=== PATIENT | female | born 1930 | race Caucasian/White ===

== ENCOUNTER 2017-01-23 09:07 | Emergency (ER) | payer OTHER, MEDICARE ==
--- NOTE | 2017-01-23 09:11 | EDPHY ---
HPI/HX/ROS/PE/MDM Narrative: CHIEF COMPLAINT: Nosebleed HPI: This is an 86-year-old female, on Xarelto for afib, with a history of recurrent nosebleeds. She developed a nosebleed at some point this morning and was transported to ED by EMS. She denies pain. She feels that living facility is not applying ointment to her nose as directed. REVIEW OF SYSTEMS: Aside from elements discussed in the HPI, a comprehensive 10-point review of systems was reviewed and is negative. PMH: Afib, on anticoagulants. Previous nasal packing for epistaxis. SOCIAL HISTORY: retired. Lives in [facility]. PHYSICAL EXAM: General:Patient is alert, in no acute distress. ENT:Eyes are normal to inspection. Nasal clamp on. Dried blood present in bilateral nares. Neck: Normal inspection. Full range of motion. Respiratory:No respiratory distress. Breath sounds normal bilaterally. Cardiovascular: Irregular rate and rhythm. Strong peripheral pulses. Normal cap refill. Neuro: Oriented x3. Normal motor function. Normal sensory function. MDM: This patient presents with epistaxis. She and her family are reluctant to be treated with nasal packing given the upcoming holiday. I think simple ED cauterization is likely to fail given her comorbidities, anticoagulant use and history of recurrence. [facility] ENT has agreed to see her in the office today and family is comfortable with the plan to defer management to ENT. - Data Points Medications Given: Discontinued Medications Oxymetazoline HCl (Afrin Nasal [place]) 2 sprays EACHNARE EDNOW ONE Stop: 01/23/17 09:41 Last Admin: 01/23/17 09:43 Dose: 2 sprays General Initial Vital Signs: Initial Vital Signs Temperature (C) 35.8 C L 01/23/17 09:16 Heart Rate 102 H 01/23/17 09:16 Respiratory Rate 12 01/23/17 09:16 Blood Pressure 160/119 H 01/23/17 09:16 O2 Sat (%) 97 01/23/17 09:16 O2 Delivery Mode Nasal Cannula O2 (L/minute) 2 Allergies/Adverse Reactions: amoxicillin Allergy (Verified 12/04/15 06:38) celecoxib Allergy (Verified 12/04/15 06:38) cephalexin Allergy (Verified 12/04/15 06:38) clindamycin Allergy (Verified 10/01/16 06:38) methotrexate Allergy (Verified 12/04/15 06:38) niacin Allergy (Verified 12/04/15 06:38) Home Medications: Medication Instructions Recorded Albuterol [Ventolin Hfa Inhaler] 11/11/15 Allopurinol 11/11/15 Bumex (*) 11/11/15 Cyanocobalamin (Vitamin B-12) 11/11/15 Diltiazem 11/11/15 Fluticasone Hfa 110 Mcg [Flovent 11/11/15 110 MCG Hfa MDI (*)] Levothyroxine 11/11/15 Melatonin 11/11/15 Potassium Chloride [Klor-Con] 11/11/15 Ranitidine HCl 11/11/15 Restasis Opht Drops(*) 11/11/15 Vitamin B Complex 11/11/15 Vitamin D3 11/11/15 Xarelto 10mg (*) 11/11/15 Departure - Departure Disposition: Home, Routine, Self-Care Clinical Impression: Acute anterior epistaxis Condition: Good Instructions: Nosebleed (ED) Additional Instructions: Go directly to [facility] ENT for evaluation. Referrals: Patient,NotPresent [Unknown] - As per Instructions Report Scribed for: Edin Melgoza Report Scribed by: Ann Marie Roberson Date of Report: 01/23/17 Time of Report: 09:11 Physician Review and Approval Statement: Portions of this note were transcribed by an ED scribe. I personally performed the history, physical exam, and medical decision making; and confirm the accuracy of the information in the transcribed note.
[2017-01-23 09:18] VITALS: O2SAT 97
[2017-01-23] MEDS ORDERED: OXYMETAZOLINE 30 ML NASAL SPRAY ONE (09:28)
[2017-01-23] MEDS ORDERED: OXYMETAZOLINE 30 ML NASAL SPRAY EACHNARE ONE (09:40)
[2017-01-23 11:46] VITALS: BP 132/102; PULSE 99; RESP 18; TEMP 98.4
== END 2017-01-23 11:47 | disposition home or self-care (01) ==
LOC: EDBD → EDUNIT#
DX: R04.0 Epistaxis (principal)

== ENCOUNTER 2017-08-19 22:59 | Emergency (ER) | payer OTHER, MEDICARE ==
[2017-08-19] MEDS ORDERED: ASPIRIN 81 MG CHEWABLE TAB PO ONE (23:02)
--- NOTE | 2017-08-19 23:03 | EDPHY ---
H & P Stated Complaint: chest discomfort Time Seen by Provider: 08/19/17 23:03 HPI/ROS: HPI The patient presents with left-sided chest discomfort and is brought in by ambulance. [place] [facility] [place] their [place] tonight, she complained of left-sided chest discomfort. Paramedics were called. Patient said pain had mostly improved, though not completely subsided. Blood glucose was normal, EKG demonstrated atrial fibrillation which is a known diagnosis for the patient. She now feels fine and denies any chest discomfort, shortness of breath, nausea, vomiting. Her daughter suspect she could be dehydrated because of the hot weather lately, often forgets to drink water. She has a MOST form with her stating that she is limited interventions. REVIEW OF SYSTEMS Constitutional: No fever, no chills. Eyes: No discharge. ENT: No sore throat. Cardiovascular: Positive for chest pain, no palpitations. Respiratory: No cough, no shortness of breath. Gastrointestinal: No abdominal pain, no vomiting. Genitourinary: No hematuria. Musculoskeletal: No back pain. Skin: No rashes. Neurological: No headache. PMHx: Hypertension, atrial fibrillation on Xarelto, history of breast cancer status post bilateral mastectomy, COPD on 2 L oxygen as needed, Alzheimer's dementia Soc Hx: [place] [facility] [place], here with her family, previously worked as an ER nurse PHYSICAL General Appearance: Alert, no distress Eyes: Pupils equal and round no pallor or injection ENT, Mouth: Mucous membranes moist Respiratory: There are no retractions, lungs are clear to auscultation Cardiovascular: Irregularly irregular Gastrointestinal: Abdomen is soft and non-tender, no masses, bowel sounds normal Neurological: A&O, moves all extremities Skin: Warm and dry, no rashes Musculoskeletal: Neck is supple non tender Extremities: Left lower extremity with trace edema of the kaiser, full range of motion Psychiatric: Patient is oriented X 3, there is no agitation Source: Patient, EMS Exam Limitations: Clinical condition - Medical/Surgical History Hx Asthma: No Hx Chronic Respiratory Disease: Yes Hx Diabetes: No Hx Cardiac Disease: Yes Hx Renal Disease: No Hx Cirrhosis: No Hx Alcoholism: No Hx HIV/AIDS: No Hx Splenectomy or Spleen Trauma: No Other PMH: HTN, Bilateral mastectomies, hypothyroid, afib,asthma COPD, Osteoarthritis, relux, Alzheimers - Social History Smoking Status: Former smoker Constitutional: Initial Vital Signs Temperature (C) 36.8 C 08/19/17 22:59 Heart Rate 95 08/19/17 22:59 Respiratory Rate 20 08/19/17 22:59 Blood Pressure 160/113 H 08/19/17 22:59 O2 Sat (%) 97 08/19/17 22:59 O2 Delivery Mode Nasal Cannula O2 (L/minute) 2 Allergies/Adverse Reactions: amoxicillin Allergy (Verified 08/19/17 23:02) celecoxib Allergy (Verified 08/19/17 23:02) cephalexin Allergy (Verified 08/19/17 23:02) clindamycin Allergy (Verified 08/19/17 23:02) methotrexate Allergy (Verified 08/19/17 23:02) niacin Allergy (Verified 08/19/17 23:02) Home Medications: Medication Instructions Recorded Albuterol [Ventolin Hfa Inhaler] 11/11/15 Allopurinol 11/11/15 Bumex (*) 11/11/15 Cyanocobalamin (Vitamin B-12) 11/11/15 Diltiazem 11/11/15 Fluticasone Hfa 110 Mcg [Flovent 11/11/15 110 MCG Hfa MDI (*)] Levothyroxine 11/11/15 Melatonin 11/11/15 Potassium Chloride [Klor-Con] 11/11/15 Ranitidine HCl 11/11/15 Restasis Opht Drops(*) 11/11/15 Vitamin B Complex 11/11/15 Vitamin D3 11/11/15 Xarelto 10mg (*) 11/11/15 Medical Decision Making - Diagnostics EKG Interpretation: EKG: Complete interpretation has been separately recorded in the [facility] archive. Summary impression: Atrial fibrillation, rate of approximately 100, no ST segment changes compared with old EKG Imaging Results: Imaging Impressions Chest X-Ray 08/19/17 23:02 Impression: 1. Prominent cardiomegaly with pulmonary venous redistribution consistent with congestive heart failure, possible pending pulmonary edema. 2. Findings consistent with airways disease noted. 3. See above report for additional findings. Imaging: I viewed and interpreted images myself Differential Diagnosis: 87-year-old female presents from her memory care unit with history of atrial fibrillation, hypertension, COPD on home O2 brought in by ambulance for left- sided chest discomfort which she complained of tonight when nurses were making their rounds. She is now feeling well, denies any current chest pain. She does suffer from Alzheimer's dementia and cannot provide full history of events. However family corroborates EMS report. On exam, she is currently in atrial fibrillation at a slightly elevated rate, otherwise she has trace left lower extremity edema, however daughter reports this is usual for her. Basic labs were checked and were unremarkable including troponin. EKG revealed persistent atrial fibrillation with no ST segment change. Chest x-ray did demonstrate cardiomegaly which is similar to prior chest x-ray from 2016, however there seems to be more prominent vasculature. Because of this BNP was added on. This was elevated. There is no prior BNP for comparison. The patient could be experiencing CHF exacerbation as the cause of her symptoms. However, currently, she is asymptomatic and feels well. She denies any shortness of breath, worsening lower extremity edema which is just trace of her left lower extremity. She has been on Bumex for several years. She previously received care in [place] before she moved to [place] a few years ago. I have discussed the test results with her and her family at the bedside. I have offered admission to the hospital for further testing. They decline at this time. I will not increase her Bumex dosing currently, however I would like for her to follow up with her primary care doctor Dr. Richard. She says she is able to do this. I have discussed strict return precautions. Differential diagnoses considered include CHF exacerbation, ACS, pulmonary embolism, pulmonary edema. - Data Points Laboratory Results: Laboratory Results 08/19/17 23:05 08/19/17 23:05 08/20/17 08/19/17 08/19/17 00:15 23:06 23:05 WBC RBC Hgb Hct MCV MCH MCHC RDW Plt Count MPV Neut % (Auto) Lymph % (Auto) [place] % (Auto) Eos % (Auto) Baso % (Auto) Nucleat RBC Rel Count Absolute Neuts (auto) Absolute Lymphs (auto) Absolute Monos (auto) Absolute Eos (auto) Absolute Basos (auto) Absolute Nucleated RBC Immature Gran % Immature Gran # D-Dimer 0.34 ug/mLFEU ug/mLFEU (0.00-0.50) Sodium Potassium Chloride Carbon Dioxide Anion Gap BUN Creatinine Estimated GFR Glucose Calcium POC Troponin I 0.01 ng/mL ng/mL (0.00-0.08) NT-Pro-B Natriuret Pep Urine Color YELLOW Urine Appearance CLEAR Urine pH 7.0 (5.0-7.5) Ur Specific [place] 1.014 (1.002-1.030) Urine Protein 2+ H (NEGATIVE) Urine Ketones NEGATIVE (NEGATIVE) Urine Blood NEGATIVE (NEGATIVE) Urine Nitrate NEGATIVE (NEGATIVE) Urine Bilirubin NEGATIVE (NEGATIVE) Urine Urobilinogen NEGATIVE EU EU (0.2-1.0) Ur Leukocyte Esterase NEGATIVE (NEGATIVE) Urine RBC 1-3 /hpf /hpf (0-3) Urine WBC 3-5 /hpf H /hpf (0-3) Ur Epithelial Cells TRACE /lpf /lpf (NONE-1+) Urine Glucose NEGATIVE (NEGATIVE) 08/19/17 08/19/17 23:05 23:05 WBC 5.91 10^3/uL 10^3/uL (3.80-9.50) RBC 5.13 10^6/uL 10^6/uL (4.18-5.33) Hgb 15.3 g/dL g/dL (12.6-16.3) Hct 47.2 % H % (38.0-47.0) MCV 92.0 fL fL (81.5-99.8) MCH 29.8 pg pg (27.9-34.1) MCHC 32.4 g/dL g/dL (32.4-36.7) RDW 14.3 % % (11.5-15.2) Plt Count 204 10^3/uL 10^3/uL (150-400) MPV 9.6 fL fL (8.7-11.7) Neut % (Auto) 50.9 % % (39.3-74.2) Lymph % (Auto) 37.1 % % (15.0-45.0) [place] % (Auto) 9.3 % % (4.5-13.0) Eos % (Auto) 1.7 % % (0.6-7.6) Baso % (Auto) 0.8 % % (0.3-1.7) Nucleat RBC Rel Count 0.0 % % (0.0-0.2) Absolute Neuts (auto) 3.01 10^3/uL 10^3/uL (1.70-6.50) Absolute Lymphs (auto) 2.19 10^3/uL 10^3/uL (1.00-3.00) Absolute Monos (auto) 0.55 10^3/uL 10^3/uL (0.30-0.80) Absolute Eos (auto) 0.10 10^3/uL 10^3/uL (0.03-0.40) Absolute Basos (auto) 0.05 10^3/uL 10^3/uL (0.02-0.10) Absolute Nucleated RBC 0.00 10^3/uL 10^3/uL (0-0.01) Immature Gran % 0.2 % % (0.0-1.1) Immature Gran # 0.01 10^3/uL 10^3/uL (0.00-0.10) D-Dimer Sodium 136 mEq/L mEq/L (135-145) Potassium 4.2 mEq/L mEq/L (3.3-5.0) Chloride 97 mEq/L mEq/L (97-110) Carbon Dioxide 34 mEq/l H mEq/l (22-31) Anion Gap 5 mEq/L L mEq/L (8-16) BUN 26 mg/dL H mg/dL (7-23) Creatinine 0.8 mg/dL mg/dL (0.6-1.0) Estimated GFR > 60 Glucose 86 mg/dL mg/dL (70-100) Calcium 9.1 mg/dL mg/dL (8.5-10.4) POC Troponin I NT-Pro-B Natriuret Pep 1480 pg/mL H pg/mL (0-450) Urine Color Urine Appearance Urine pH Ur Specific [place] Urine Protein Urine Ketones Urine Blood Urine Nitrate Urine Bilirubin Urine Urobilinogen Ur Leukocyte Esterase Urine RBC Urine WBC Ur Epithelial Cells Urine Glucose Medications Given: Discontinued Medications Aspirin (Aspirin) 324 mg PO EDNOW ONE Stop: 08/19/17 23:03 Last Admin: 08/19/17 23:14 Dose: 324 mg Sodium Chloride (Ns) 500 mls @ 1,000 mls/hr IV EDNOW ONE PRN Reason: Protocol Stop: 08/19/17 23:39 Last Admin: 08/19/17 23:13 Dose: 500 mls Point of Care Test Results: Chemistry 08/19/17 23:06 POC Troponin I 0.01 ng/mL ng/mL (0.00-0.08) Departure - Departure Disposition: Home, Routine, Self-Care Clinical Impression: Chest discomfort, CHF (congestive heart failure) Atrial fibrillation Qualifiers: Atrial fibrillation type: chronic Qualified Code(s): I48.2 - Chronic atrial fibrillation Condition: Good Instructions: Chest Pain (ED) Additional Instructions: The cause of your chest pain is not entirely clear, because of this you should return to the emergency department if you are worse in any way, develops any shortness of breath or swelling in her legs. I would like for you to follow up with Dr. Richard in the next few days for recheck. Referrals: LEE DELEON [Other] - As per Instructions Galo Richard MD [Medical Doctor] - As per Instructions
--- NOTE | 2017-08-19 23:09 | CPEKG ---
Heart Rate: 107 RR Interval: 561 QRSD Interval: 92 QT Interval: 352 QTC Interval: 470 QRS Sandy: 46 T Wave Sandy: 33 EKG Severity - ABNORMAL ECG - EKG Impression: ATRIAL FIBRILLATION, V-RATE 72-139 EKG Impression: PROBABLE LVH WITH SECONDARY REPOL ABNRM Electronically Signed By: Ivy Hung 20-Aug-2017 05:47:29
[2017-08-19] MEDS ORDERED: NS 500 ML IV ONE (23:10)
[2017-08-19 23:12] LABS: PLATELET COUNT 204 10^3/uL (150-400)
[2017-08-20 01:30] VITALS: BP 158/98
== END 2017-08-20 01:30 | disposition home or self-care (01) ==
LOC: EDUNIT#
DX: I48.2 Chronic atrial fibrillation (principal); J44.9 Chronic obstructive pulmonary disease, unspecified; I11.0 Hypertensive heart disease with heart failure; I50.9 Heart failure, unspecified; G30.9 Alzheimer's disease, unspecified; E86.9 Volume depletion, unspecified; Z85.3 Personal history of malignant neoplasm of breast; Z87.891 Personal history of nicotine dependence
CPT/HCPCS: 84484-PO

== ENCOUNTER → 2018-03-12 | Outpatient (CLI) | payer OTHER, MEDICARE | LOC: FIMAGING 15:33 | PROVIDERS: ATTEND Family Medicine Geriatric Medicine | DX: R91.8 Other nonspecific abnormal finding of lung field (principal) ==

== ENCOUNTER 2018-03-15 03:06 | Inpatient (IN) | payer OTHER, MEDICARE ==
[2018-03-15] MEDS ORDERED: TDAP ADULT 0.5 ML INJ (BOOSTRIX) IM ONE (03:17)
[2018-03-15] MEDS ORDERED: ONDANSETRON 4 MG/2 ML VIAL IVP ONE (03:25)
[2018-03-15] MEDS ORDERED: ONDANSETRON 4 MG/2 ML VIAL ONE ×2 (03:26→07:03)
--- NOTE | 2018-03-15 03:39 | EDPHY ---
H & P Stated Complaint: FALL, HEAD LAC, PAIN ADAN KNEES, MULT BRUISES Time Seen by Provider: 03/15/18 03:15 HPI/ROS: HPI: The patient presents with a fall which occurred earlier in the morning today. She is brought in by ambulance for [facility] memory care where she resides. She was found on her 2:00 a.m. Nursing rounds on the ground, unable to stand up with scalp laceration, right knee pain. 911 was called. Patient is not able to provide history surrounding the details of her fall. She denies any complaints currently. She received fentanyl 100 mcg EN route. She has a MOST form stating that she is limited interventions, DNR. REVIEW OF SYSTEMS 10 systems were reviewed and negative with the exception of the elements mentioned in the history of present illness. PMHx: Hypertension, atrial fibrillation on Xarelto, CAD, history of breast cancer status post bilateral mastectomy, COPD on 2 L nasal cannula usually, history of Alzheimer's dementia TRAUMA PHYSICAL General Appearance: Alert, no distress Head: Large left-sided frontal hematoma with overlying 3 cm scalp laceration Eyes: Pupils equal, round, reactive ENT, Mouth: No hemotypanium, no oral trauma Neck: Non- tender, trachea midline Respiratory: No chest wall tenderness, no subcutaneous air, lungs clear bilaterally Cardiovascular: Regular rate and rhythm Abdomen: Abdomen is soft and non-tender, pelvis stable Skin: Forehead laceration as above Back: No midline T/L/S pain Extremities: Right knee with effusion present, diffuse ecchymoses, limited range of motion secondary to pain; left knee is tender to palpation with limited range of motion as well Neurological: Alert, oriented to self, GCS=15,normal motor function with 5/5 strength in all 4 extremities, normal sensory exam Source: Patient, EMS, [facility] records, Old records Exam Limitations: Clinical condition - Personal History Current Tetanus Diphtheria and Acellular Pertussis (TDAP): Unsure - Medical/Surgical History Hx Asthma: No Hx Chronic Respiratory Disease: Yes Hx Diabetes: No Hx Cardiac Disease: Yes Hx Renal Disease: No Hx Cirrhosis: No Hx Alcoholism: No Hx HIV/AIDS: No Hx Splenectomy or Spleen Trauma: No Other PMH: HTN, Bilateral mastectomies, hypothyroid, afib,asthma COPD, Osteoarthritis, relux, Alzheimers, gout - Social History Smoking Status: Former smoker Constitutional: Initial Vital Signs Temperature (C) 36.5 C 03/15/18 03:06 Heart Rate 87 03/15/18 03:06 Respiratory Rate 16 03/15/18 03:06 Blood Pressure 180/110 H 03/15/18 03:06 O2 Sat (%) 96 03/15/18 03:06 O2 Delivery Mode Nasal Cannula O2 (L/minute) 4 Allergies/Adverse Reactions: amoxicillin Allergy (Verified 08/19/17 23:02) celecoxib Allergy (Verified 08/19/17 23:02) cephalexin Allergy (Verified 08/19/17 23:02) clindamycin Allergy (Verified 08/19/17 23:02) methotrexate Allergy (Verified 08/19/17 23:02) niacin Allergy (Verified 08/19/17 23:02) Home Medications: Medication Instructions Recorded Albuterol [Ventolin Hfa Inhaler] 2 puffs IH BID 03/15/18 Allopurinol [Allopurinol 300 MG 300 mg PO DAILY 03/15/18 (RX)] Bumetanide [Bumex (*)] 2 mg PO DAILY 03/15/18 Calcium Carbonate [Oyster Shell 500 mg PO DAILY 03/15/18 Calcium 500 mg (*)] Cholecalciferol Vit D3 [Vitamin D3 2,000 units PO DAILY 03/15/18 (*)] Cyanocobalamin [Vitamin B12 (*)] 1,000 mcg PO DAILY 03/15/18 Diltiazem HCl [Diltiazem 24Hr Cd] 180 mg PO DAILY 03/15/18 Potassium Cl [Klor-Con 20 meq (*)] 20 meq PO DAILY 03/15/18 Propylene Glycol/Peg 400 [Systane 1 drop EACHEYE BID 03/15/18 0.3-0.4% Eye Drops] Rivaroxaban [Xarelto] 20 mg PO DAILY 03/15/18 cycloSPORINE 0.05% [Restasis Opht 1 drop EACHEYE BID 03/15/18 Drops(*)] Medical Decision Making - Diagnostics Imaging Results: Chest x-ray single view demonstrates cardiomegaly, likely pulmonary edema present verses infiltrate of the right middle lobe, prominent right hilum similar to prior chest x-rays Imaging: Discussed imaging studies w/ scallop raker Radiologist, I viewed and interpreted images myself Procedures: LACERATION REPAIR Procedure: Laceration repair. Verbal consent was obtained from the patient. The C-shaped 5 cm laceration on the left forehead was anesthetized using [lidocaine]. The wound was [scrubbed] , draped and explored to its base with a gloved finger. [There were no deep structures involved.] [No tendon injury was identified.] [The wound required extensive debridement ]. The wound was repaired with [ ]. The wound repair was [simple/complex]. The procedure was performed by [myself]. Differential Diagnosis: 87-year-old female with multiple medical problems including atrial fibrillation on Xarelto, hypertension, COPD requiring oxygen, Alzheimer's dementia presents brought in by ambulance from her memory care unit after a unwitnessed fall earlier in the morning. She has signs of head injury with frontal hematoma and scalp laceration. She has diffuse ecchymoses of her right knee and limited range of motion secondary to pain. Her right wrist is also edematous. In the emergency department, I met the paramedics at the bedside to obtain their report. The patient had x-rays performed of her right wrist and right knee. No fracture was identified. Her knee was kept elevated. She underwent CT scan of head and neck which showed no fracture or acute bleeding. Her forehead laceration was repaired by me. She had ongoing swelling of her right knee with increasing ecchymoses and development of blisters on her anterior knee. The compartments in her lower leg remained soft. I consulted with the on-call trauma surgeon Dr. Hewitt who came to the emergency department to evaluate the patient. We have ordered PCC for reversal of her Xarelto given the ecchymoses of her knee per Dr. Hewitt request. We have also added on a CPK level given down time is unknown. We will scan her chest abdomen and pelvis to evaluate for any further injuries. I have also consulted with the on-call orthopedist Dr. Lane who will come in to see the patient. I have spoken with the patient's daughter Karely (home [phone]) about the patient's injuries and current treatment. She will come into the emergency department. The patient went directly to the operating room with the orthopedist for her knee injury. She will be admitted to the hospitalist and I have consulted with Dr. Meza for her admission. Critical Care Time: CRITICAL CARE Critical care time spent by me, Dr. Hung, exclusively with this patient was 60 minutes, exclusive of PA time and exclusive of procedures. The organ system at risk was circulatory and I gave PCC, consulted with Trauma, orthopedics, internal medicine, transfer the patient directly to the operating room to prevent worsening of the patients condition. - Data Points Laboratory Results: Laboratory Results 03/15/18 03:35 03/15/18 03:35 Medications Given: Acetaminophen (Tylenol) 650 mg PO Q4HRS PRN PRN Reason: Pain, Mild/Fever, Can Take PO Stop: 09/11/18 05:37 Last Admin: 03/15/18 20:14 Dose: 650 mg Diltiazem HCl (Cardizem Immediate Release) 60 mg PO Q6HRS MY Stop: 09/11/18 15:44 Last Admin: 03/15/18 15:51 Dose: 60 mg Discontinued Medications Diphtheria/Tetanus/Acell Pertussis (Boostrix) 0.5 ml IM .ONCE ONE Stop: 03/15/18 03:18 Last Admin: 03/15/18 03:48 Dose: 0.5 ml Furosemide (Lasix Injection) 40 mg IVP ONCE ONE Stop: 03/15/18 19:11 Last Admin: 03/15/18 20:09 Dose: 40 mg Prothrombin Complex Concent (Human) (Kcentra) 4,300 unit in 172 mls @ 0 mls/hr IV ONCE ONE; Per Protocol PRN Reason: Protocol Stop: 03/15/18 05:34 Last Admin: 03/15/18 06:36 Dose: 172 mls Vancomycin HCl 1 gm/ Sodium (Chloride) 250 mls @ 250 mls/hr IV ONCE ONE Stop: 03/15/18 08:29 Last Admin: 03/15/18 07:59 Dose: 250 mls Ondansetron HCl (Zofran) 4 mg IVP EDNOW ONE Stop: 03/15/18 03:26 Last Admin: 03/15/18 03:48 Dose: 4 mg Vancomycin HCl (Vancomycin Hcl) Confirm Administered Dose 500 mg IV .STK-MED ONE Stop: 03/15/18 07:48 Last Admin: 03/15/18 08:39 Dose: 500 mg Departure - Departure Disposition: To OP Cath/Surgery
[2018-03-15 03:54] LABS: PLATELET COUNT 207 10^3/uL (150-400)
[2018-03-15 04:02] LABS: INR 2.01 (0.83-1.16); PROTIME(PATIENT) 22.8 SEC (12.0-15.0)
[2018-03-15] MEDS ORDERED: [UNRECOGNIZED DRUG - OTHER] IV ONE (05:05)
--- NOTE | 2018-03-15 05:30 | CPEKG ---
Test Reason : OPEN Blood Pressure : / mmHG Vent. Rate : 089 BPM Atrial Rate : 153 BPM P-R Int : 149 ms QRS Dur : 095 ms QT Int : 400 ms P-R-T Axes : 000 049 -18 degrees QTc Int : 487 ms Atrial fibrillation Probable left ventricular hypertrophy Borderline T abnormalities, inferior leads Borderline prolonged QT interval Confirmed by Ivy Hung ([id number]) on 03/15/2018 5:30:27 AM Referred By: Confirmed By:Ivy Hung
[2018-03-15] MEDS ORDERED: HUMAN PROTHROMBIN COMPLX IV ONE (05:33)
[2018-03-15] MEDS ORDERED: IOPAMIDOL (ISOVUE 370) 100 ML BTL IV ONE (05:33)
[2018-03-15 05:37] LABS: CREATINE KINASE 58 IU/L (0-156)
[2018-03-15] MEDS ORDERED: ONDANSETRON 4 MG/2 ML VIAL IVP PRN ×2 (05:38→08:40)
[2018-03-15] MEDS ORDERED: ONDANSETRON DISINTEGRATING 4 MG TAB PO PRN (05:38)
--- NOTE | 2018-03-15 06:11 | PDGENHP ---
History and Physical - Chief Complaint Found down - History of Present Illness 87 yo F w/ hx of dementia, AF, CHF, and hypothyroid presents after being found down at her living facility. The patient lives at [facility] and was found down this morning with several injures. She has a L frontal laceration and a large R knee effusion. She is on Xarelto for anticoagulation in the setting of atrial fibrillation. The patient herself has very poor memory and is unable to tell me what happened. She does not remember how she fell and does not know why she is here. She Suze&Ox1 on my evaluation with unclear baseline. Her facility did report that her Bumex was stopped earlier this week for concerns of dehydration and restarted recently. Evaluation in the ED is mostly unremarkable aside from large R knee effusion, which is likely a hematoma. The patient herself is currently denying symptoms aside from R knee pain. Case discussed with ED physician Dr. Hung and trauma surgeon Dr. Hewitt; records reviewed and summarized above. History Information - Allergies/Home Medication List Allergies/Adverse Reactions: amoxicillin Allergy (Verified 08/19/17 23:02) celecoxib Allergy (Verified 08/19/17 23:02) cephalexin Allergy (Verified 08/19/17 23:02) clindamycin Allergy (Verified 08/19/17 23:02) methotrexate Allergy (Verified 08/19/17 23:02) niacin Allergy (Verified 08/19/17 23:02) Home Medications: Allopurinol 300 mg DAILY 11/11/15 [Last Taken Unknown] Bumex (*) 2 mg BID 11/11/15 [Last Taken Unknown] Diltiazem 180 mg DAILY 11/11/15 [Last Taken Unknown] Levothyroxine 50 mcg DAILY 11/11/15 [Last Taken Unknown] Melatonin 3 mg DAILY 11/11/15 [Last Taken Unknown] Potassium Chloride [Klor-Con] DAILY 11/11/15 [Last Taken Unknown] Ranitidine HCl 75 mg BID 11/11/15 [Last Taken Unknown] Restasis Opht Drops(*) 1 drop BID 11/11/15 [Last Taken Unknown] Vitamin B Complex DAILY 11/11/15 [Last Taken Unknown] Vitamin D3 2,000 units DAILY 11/11/15 [Last Taken Unknown] Fluticasone Hfa 220 Mcg 1 puffs BID 03/15/18 [Last Taken Unknown] Ventolin Hfa Inhaler 90 mcg BID 03/15/18 [Last Taken Unknown] Xarelto 20 mg DAILY 03/15/18 [Last Taken Unknown] I have personally reviewed and updated: family history, medical history - Past Medical History atrial fibrillation, asthma, CHF Additional medical history: Hypothyroid - Surgical History Additional surgical history: R TKA - Family History Additional family history: Patient unable to recall - Social History Smoking Status: Former smoker Review of Systems Review of Systems: ROS: 10pt was reviewed & negative except for what was stated in HPI & below Physical Exam Physical Exam: Temp Pulse Resp BP Pulse Ox 36.5 C 87 20 146/84 H 100 03/15/18 03:06 03/15/18 05:04 03/15/18 05:04 03/15/18 05:04 03/15/18 05:04 Constitutional: appears nourished, uncomfortable Eyes: PERRL, other (L frontal laceration) Ears, Nose, Mouth, Throat: moist mucous membranes, no oral mucosal ulcers Cardiovascular: no murmur, rub, or gallop, irregularly irregular Respiratory: no respiratory distress, clear to auscultation Gastrointestinal: normoactive bowel sounds, soft, non-tender abdomen Skin: warm, other (Large R knee effusion with overlying ecchymoses) Musculoskeletal: joint effusion (Large R knee effusion with overlying ecchymoses ), pain with ROM Neurologic: other (A&Ox1), No facial droop Psychiatric: interacting appropriately, poor insight, poor memory Lab Data & Imaging Review 03/15/18 03:35 03/15/18 03:35 WBC 6.82 10^3/uL (3.80-9.50) 03/15/18 03:35 RBC 4.45 10^6/uL (4.18-5.33) 03/15/18 03:35 Hgb 13.7 g/dL (12.6-16.3) 03/15/18 03:35 Hct 42.6 % (38.0-47.0) 03/15/18 03:35 MCV 95.7 fL (81.5-99.8) 03/15/18 03:35 MCH 30.8 pg (27.9-34.1) 03/15/18 03:35 MCHC 32.2 g/dL (32.4-36.7) L 03/15/18 03:35 RDW 14.4 % (11.5-15.2) 03/15/18 03:35 Plt Count 207 10^3/uL (150-400) 03/15/18 03:35 MPV 9.3 fL (8.7-11.7) 03/15/18 03:35 Neut % (Auto) 65.1 % (39.3-74.2) 03/15/18 03:35 Lymph % (Auto) 24.3 % (15.0-45.0) 03/15/18 03:35 [place] % (Auto) 8.1 % (4.5-13.0) 03/15/18 03:35 Eos % (Auto) 1.8 % (0.6-7.6) 03/15/18 03:35 Baso % (Auto) 0.4 % (0.3-1.7) 03/15/18 03:35 Nucleat RBC Rel Count 0.0 % (0.0-0.2) 03/15/18 03:35 Absolute Neuts (auto) 4.44 10^3/uL (1.70-6.50) 03/15/18 03:35 Absolute Lymphs (auto) 1.66 10^3/uL (1.00-3.00) 03/15/18 03:35 Absolute Monos (auto) 0.55 10^3/uL (0.30-0.80) 03/15/18 03:35 Absolute Eos (auto) 0.12 10^3/uL (0.03-0.40) 03/15/18 03:35 Absolute Basos (auto) 0.03 10^3/uL (0.02-0.10) 03/15/18 03:35 Absolute Nucleated RBC 0.00 10^3/uL (0-0.01) 03/15/18 03:35 Immature Gran % 0.3 % (0.0-1.1) 03/15/18 03:35 Immature Gran # 0.02 10^3/uL (0.00-0.10) 03/15/18 03:35 PT 22.8 SEC (12.0-15.0) H 03/15/18 03:35 INR 2.01 (0.83-1.16) H 03/15/18 03:35 APTT 36.3 SEC (23.0-38.0) 03/15/18 03:35 Sodium 137 mEq/L (135-145) 03/15/18 03:35 Potassium 4.4 mEq/L (3.5-5.2) 03/15/18 03:35 Chloride 103 mEq/L (97-110) 03/15/18 03:35 Carbon Dioxide 30 mEq/l (22-31) 03/15/18 03:35 Anion Gap 4 mEq/L (6-14) L 03/15/18 03:35 BUN 19 mg/dL (7-23) 03/15/18 03:35 Creatinine 0.7 mg/dL (0.6-1.0) 03/15/18 03:35 Estimated GFR > 60 03/15/18 03:35 Glucose 117 mg/dL (70-100) H 03/15/18 03:35 Calcium 8.2 mg/dL (8.5-10.4) L 03/15/18 03:35 Creatine Kinase 58 IU/L (0-156) 03/15/18 03:35 NT-Pro-B Natriuret Pep 1060 pg/mL (0-450) H 03/15/18 03:35 Urine Color PALE YELLOW 03/15/18 04:20 Urine Appearance CLEAR 03/15/18 04:20 Urine pH 6.0 (5.0-7.5) 03/15/18 04:20 Ur Specific Doon 1.011 (1.002-1.030) 03/15/18 04:20 Urine Protein 1+ (NEGATIVE) H 03/15/18 04:20 Urine Ketones NEGATIVE (NEGATIVE) 03/15/18 04:20 Urine Blood 1+ (NEGATIVE) H 03/15/18 04:20 Urine Nitrate NEGATIVE (NEGATIVE) 03/15/18 04:20 Urine Bilirubin NEGATIVE (NEGATIVE) 03/15/18 04:20 Urine Urobilinogen NEGATIVE EU (0.2-1.0) 03/15/18 04:20 Ur Leukocyte Esterase NEGATIVE (NEGATIVE) 03/15/18 04:20 Urine RBC 1-3 /hpf (0-3) 03/15/18 04:20 Urine WBC 1-3 /hpf (0-3) 03/15/18 04:20 Ur Epithelial Cells TRACE /lpf (NONE-1+) 03/15/18 04:20 Urine Mucus TRACE /lpf (NONE-1+) 03/15/18 04:20 Urine Glucose NEGATIVE (NEGATIVE) 03/15/18 04:20 Assessment & Plan Assessment: 87 yo F w/ hx of dementia, AF, CHF, and hypothyroid presents after being found down found to have large R knee effusion and L frontal lacertaion. Plan: 1. R knee effusion - Suspect hematoma; prosthetic knee appears to be in good alignment (XR personally reviewed). She is on anticoagulation with Xarelto for atrial fibrillation. She has good pulses and sensation distally. - Maintain NPO - Trauma and orthopedic surgery to evaluate 2. Atrial fibrillation - On Xarelto for anticoagulation and diltiazem for rate control. HR currently <100, admission ECG (personally reviewed) demonstrates atrial fibrillation. - Hold Xarelto noting above - Continue other home medications pending reconciliation 3. CHF - Unclear if systolic or diastolic; she is on Bumex as outpatient. Her BNP is elevated but decreased from last check in August of 2017. Her CXR demonstrates vascular congestion but in the setting of very poor inspiratory effort. LLE shows only trace edema while the R is edematous likely due to her large knee effusion. - NPO for now noting above - Daily weights, monitor I/Os 4. Chronic hypoxic respiratory failure - The patient wears 3 L/min O2 at baseline. This is likely due to CHF, asthma, and RHINA/OHS. She is currently near her baseline. - O2 PRN to maintain O2 sats>89% 5. Asthma - No evidence of acute exacerbation - Continue home medications pending reconciliation 6. Hypothyroid - Continue LTX Diet - NPO Code - DNR per MOST form Ppx - SCDs Dispo - Admit under observation status
[2018-03-15] MEDS ORDERED: CEFAZOLIN 2 GM/DEXTROSE/100 ML BAG IV ONE (06:59)
[2018-03-15] MEDS ORDERED: fentaNYL 250 MCG/5 ML INJ ONE (07:03)
[2018-03-15] MEDS ORDERED: DEXAMETHASONE 4 MG/ML VIAL ONE (07:03)
[2018-03-15] MEDS ORDERED: LIDOCAINE 2% 100 MG/5 ML SYR ONE (07:03)
[2018-03-15] MEDS ORDERED: PROPOFOL 200 MG/20 ML VIAL ONE (07:03)
[2018-03-15] MEDS ORDERED: ROCURONIUM 50 MG/5 ML VIAL ONE (07:03)
[2018-03-15] MEDS ORDERED: VANCOMYCIN 1 GM in NS 250 ML IV ONE (07:30)
--- NOTE | 2018-03-15 07:40 | GCON ---
TRAUMA CONSULTATION REASON FOR EVALUATION: Fall from standing at Memory Care Unit with tense ecchymotic change right knee. Laceration left forehead with contusion right forehead, contusion left knee, contusion right hand. HISTORY: The patient is an 87-year-old female who was a DNR/DNA, no pressors patient, who was at a Memory Care Unit. She was found down on the floor at 2 o' clock in the morning; the last rounds had been 2 hours prior. She was in the middle of the floor and did not obviously hit anything. She was brought to the ER evaluation and was seen by Dr. Ivy Hung. She is complaining of right knee and leg pain as well as right wrist pain. CAT scans of her head and neck were negative. Chest x-ray was consistent with mild fluid overload. Her right knee x-rays showed no evidence of injury to the hardware. The patient has absolutely zero memory for the event. ALLERGIES: She has allergies to clindamycin, cephalexin, amoxicillin, Celecoxib , methotrexate, and niacin. She requires oxygen at 3 L/minute. MEDICATIONS: Include vitamin B12 1000 mg daily, allopurinol 300 mg daily, Bumex 2 mg daily (note this has been stopped for 3 days last week). Potassium 20 mEq daily. She uses diltiazem 180 mg daily, Xarelto 20 mg daily, Zantac 75 mg b.i.d., Ventolin inhaler 1 puff b.i.d., Flovent Diskus 250 b.i.d., levothyroxine 150 mcg daily, melatonin 3 mg q.h.s., nystatin cream twice a day, vitamin B 2000 mg daily, docusate 100 mg b.i.d., Gary 500 mg daily, Restasis 1 drop b.i.d., and Cystine 1 drop daily. SURGERIES: Appear to have included bilateral mastectomy for breast cancer, bilateral knee replacement and it looks like she has had extensive back surgery from L2 through L5. Note, she cannot relate any of these surgeries to us. Documentation from the [facility] is silent on this topic. PAST MEDICAL HISTORY: She is known to have Alzheimer dementia. She has asthma and COPD. She has atrial fibrillation. She has a rash under her pannus and near her labia. She has reflux and gout. She was seen in the ER. Her face laceration was repaired. Dr. Lane of Orthopedics has been contacted to evaluate her knee to see if decompression is necessary. PHYSICAL EXAMINATION: GENERAL: She is pleasant, but quite confused. NEUROLOGIC: She is oriented to person only. GCS is 15. She is able to move fingers and toes bilaterally and elevate her arms. I do not detect any focal lateralizing findings. HEAD: Skull has a repaired laceration near the hairline, the upper left forehead and contusion on her right forehead. Skull is palpably normal. There is no Palomo sign. There are no raccoon eyes. EYES: Pupils were 2 mm and minimally reactive. NECK: Nontender. BACK: Nontender to palpation. CHEST: Stable to AP and lateral compression. RIGHT UPPER EXTREMITY: Ecchymosis over the 3rd metacarpal. CARDIAC: Shows S1, S2 to be normal. I do not appreciate any murmurs or rubs at this point. She has an irregularly irregular heartbeat. ABDOMEN: Generous. There is a large rash underneath her pannus. Her pelvis is stable to AP and lateral compression. She has normoactive bowel sounds. LOWER EXTREMITIES: Her left lower extremity has ecchymosis on the medial aspect of the knee. Her right knee has a tensely distended ecchymosis with blistering. She has good distal pulses. Her right leg is quite uncomfortable with attempts at flexion at the knee. LABORATORIES: Reveal a CBC of 6.8, hematocrit of 42, platelet count is 205. INR is 2.01. BUN is 0.7, creatinine is 19. Her urine shows 1-3 red cells per high-power field, 1+ blood, but her CPK is negative. Her BNP is 1050. The CT of her head and neck report is negative. The x-ray of her right wrist and knees report is negative. The report is not yet back on the CT of the chest, abdomen and pelvis. To my examination, there are signs of an extensive back surgery from L2 to L5 with multiple screws placed. A formal interpretation is pending. I do not see evidence of great vessel injury or acute fractures. There are extensive degenerative joint changes in the spine. PLAN: The patient will be admitted to Medicine. I have asked Dr. Lane to come see the patient to see her regarding possible knee decompression to prevent further skin breakdown. Her anticoagulation will be reversed with PCC. /[id number]/MODL MTDD
--- NOTE | 2018-03-15 07:41 | PDANEPAE ---
ANE History of Present Illness R knee I&D ANE Past Medical History - Cardiovascular History Hx Arrhythmias: Yes - Pulmonary History Hx COPD: Yes Hx Asthma/Reactive Airway Disease: Yes Hx Oxygen in Use at Home: Yes O2 in Use at Home (L/minute): 3 Hx Sleep Apnea: No - Endocrine History Hx Diabetes: No - Neurological & Psychiatric Hx Hx Neurological and Psychiatric Disorders: Yes Neurological / Psychiatric History Comment: dementia ANE Review of Systems Review of systems is: negative Review of Systems: - Exercise capacity Exercise capacity: unable to assess ANE Patient History - Allergies Allergies/Adverse Reactions: amoxicillin Allergy (Verified 08/19/17 23:02) celecoxib Allergy (Verified 08/19/17 23:02) cephalexin Allergy (Verified 08/19/17 23:02) clindamycin Allergy (Verified 08/19/17 23:02) methotrexate Allergy (Verified 08/19/17 23:02) niacin Allergy (Verified 08/19/17 23:02) - Home Medications Home medications: home medication list seen and reviewed Home Medications: Allopurinol 300 mg DAILY 11/11/15 [Last Taken Unknown] Bumex (*) 2 mg BID 11/11/15 [Last Taken Unknown] Diltiazem 180 mg DAILY 11/11/15 [Last Taken Unknown] Levothyroxine 50 mcg DAILY 11/11/15 [Last Taken Unknown] Melatonin 3 mg DAILY 11/11/15 [Last Taken Unknown] Potassium Chloride [Klor-Con] DAILY 11/11/15 [Last Taken Unknown] Ranitidine HCl 75 mg BID 11/11/15 [Last Taken Unknown] Restasis Opht Drops(*) 1 drop BID 11/11/15 [Last Taken Unknown] Vitamin B Complex DAILY 11/11/15 [Last Taken Unknown] Vitamin D3 2,000 units DAILY 11/11/15 [Last Taken Unknown] Fluticasone Hfa 220 Mcg 1 puffs BID 03/15/18 [Last Taken Unknown] Ventolin Hfa Inhaler 90 mcg BID 03/15/18 [Last Taken Unknown] Xarelto 20 mg DAILY 03/15/18 [Last Taken Unknown] - NPO status NPO Since - Liquids (Date): 03/14/18 NPO Since - Liquids (Time): 17:00 NPO Since - Solids (Date): 03/14/18 NPO Since - Solids (Time): 17:00 - Anes Hx Anes Hx: no prior problems - Smoking Hx Smoking Status: Former smoker - Family Anes Hx Family Anes Hx: none ANE Labs/Vital Signs - Labs Result Diagrams: 03/15/18 03:35 03/15/18 03:35 - Vital Signs Vital Signs: reviewed preoperatively; see RN documention for details Blood Pressure: 151/85 Heart Rate: 87 Respiratory Rate: 18 O2 Sat (%): 99 Weight: 86 kg ANE Physical Exam - Airway Neck exam: FROM Mallampati Score: Class 2 Mouth exam: poor dentition - Pulmonary Pulmonary: no respiratory distress - Cardiovascular Cardiovascular: irregularly irregular - ASA Status ASA Status: III, E ANE Anesthesia Plan Anesthesia Plan: general endotracheal anesthesia (RSI) Urgent/Emergent Case: Dipesh lynn completed preop but documented later for safe timely pt care
[2018-03-15] MEDS ORDERED: VANCOMYCIN 500 MG/10 ML VIAL IV ONE (07:47)
[2018-03-15] MEDS ORDERED: SUGAMMADEX SODIUM 200 MG/2 ML VIAL IVP ONE (07:59)
[2018-03-15] MEDS ORDERED: NALOXONE HCL 0.4 MG/ML INJ ONE (08:19)
[2018-03-15] MEDS ORDERED: oxyCODONE IR 5 MG TAB PO PRN (08:40)
[2018-03-15] MEDS ORDERED: MEPERIDINE 25 MG/0.5 ML AMP IVP PRN (08:40)
[2018-03-15] MEDS ORDERED: NALOXONE HCL 0.4 MG/ML INJ IVP PRN (08:40)
[2018-03-15] MEDS ORDERED: fentaNYL 100 MCG/2 ML INJ IVP PRN (08:40)
[2018-03-15] MEDS ORDERED: DEXAMETHASONE 4 MG/ML VIAL IVP PRN (08:40)
[2018-03-15] MEDS ORDERED: PROMETHAZINE HCL 25 MG/ML INJ IVP PRN (08:40)
[2018-03-15] MEDS ORDERED: LABETALOL HCL 5 MG/ML 20 ML MDV IVP PRN (08:40)
--- NOTE | 2018-03-15 08:43 | POSTANESTH ---
Post Anesthetic Evaluation Cardiovascular Status: Similar to Pre-Op Cond Respiratory Status: Similar to Pre-op Cond. Level of Consciousness/Mental Status: Can Participate in Eval, Mildly Sleepy, Arousable Pain Control: Adequate, Prn Tx Ordered Nausea/Vomiting Control: Adequate, Prn Tx Ordered Complications Possibly Related to Anesthesia: None Noted
--- NOTE | 2018-03-15 08:57 | GCON ---
I was asked to see the patient by the emergency room staff on-call. HISTORY OF PRESENT ILLNESS: The patient is a very pleasant 87-year-old woman who lives in a [facility] unit. She was found down with multiple injuries, including minor facial trauma, as well as a mar kedly swollen right knee. PHYSICAL EXAMINATION: EXTREMITIES: The right knee is ecchymotic and with fracture blisters. It is quite tender to the touch and the patient is not able to move the knee whatsoever. Of note, I said I was asked to see the patient around 5:30 a.m. and saw her about 30 minutes later, and the presentati on was quite profound with regard to the amount of swelling and bruising present. In total, the surf phil area of the ecchymosis is about 15 x 20 cm. By report, this has gotten progressively worse over the last hour or so, with the fracture blisters becoming worse and the skin becoming more and more te nse. NEUROLOGIC: The patient's exam is quite limited distally to this. IMAGING: I reviewed images, which demonstrate well-positioned total knee replacement. She does have quite a bit of polyethylene wear laterally, but otherwise unremarkable without any evidence of gross loosening or fracture. IMPRESSION: Right knee threatened skin with severe ecchymosis. ASSESSMENT AND PLAN: I think this patient needs an emergent washout and release of any sort of clot or bleeding controlled that may be present. She is certainly at risk for losing the skin around the knee and requiring some sort of Plastic Surgery intervention at some point in the future. I have ind icated her for a washout and possible polyethylene liner exchange. I have consented her daughter who is present and agreed to the procedure. She understands the risks and benefits of moving forward an d would like to move forward as I described. /[id number]/MODL
--- NOTE | 2018-03-15 15:44 | GOP ---
DATE OF OPERATION: SURGEON: Delfino Lane MD CENTRAL OFFICE REPAIRER: None. ANESTHESIA: General. PREOPERATIVE DIAGNOSIS: Right knee hematoma with threatened skin. POSTOPERATIVE DIAGNOSIS: Prepatellar hematoma. PROCEDURE PERFORMED: FINDINGS: Large prepatellar hematoma without gross extension into the knee joint. SPECIMENS: None. INDICATIONS: This is a very pleasant 87-year-old woman who was found down after a fall. She was not ed to have an ecchymotic right knee, which was noted to have expansile hematoma in that right knee. She had been indicated for a washout and possible revision of components. DESCRIPTION OF PROCEDURE: A surgical time-out was performed by all parties involved and everyone was in agreement. The right leg was then prepped and draped in the usual sterile fashion. The previous total knee incision was then opened with a copious amount of clot being present in the p repatellar bursa. This was then evacuated extensively. Of note, this was noted to extend down about 15 cm down the tibia and come all the way around laterally to the fibula. This was a large potentia l space that had been created by the hematoma itself. This was washed out using pulse lavage and 3 L of saline. Following this, antibiotics were administered into the incision. 2-0 Monocryl was used t o close the subdermal layer and nylons were used to close the skin. I was present for all portions o f the procedure. A deep drain was placed prior to closure. COMPLICATIONS: None. CONDITION: Stable to PACU. POSTOPERATIVE PLAN: The patient will be returned to the medical service. She would be weightbearing as tolerated following the operation from my perspective, and we will keep the drain in for a couple days to decrease the potential space within the prepatellar bursa. /[id number]/MODL
[2018-03-15] MEDS: DILTIAZEM 60 MG TAB PO SCH (15:51)
--- NOTE | 2018-03-15 18:32 | TRAUMAPNT ---
Trauma Tertiary Progress Note New Findings: Hematuria likely due to Jackson trauma with the patient who is fully anticoagulated. Dr. Salazar is aware and appropriate care has been taken. If the patient has continued issues urology consult Assessment/Plan: Unwitnessed fall in an 87-year-old patient. CT scan of the chest abdomen and pelvis was negative for acute trauma. Assessment of the patient this evening with her family member present shows patient is alert to person place and time Amnestic to the event but otherwise in good spirits Tachycardic with premature ventricular contractions diltiazem has been given Medicine is aware Irregular rate and rhythm Clear to auscultation Abdomen soft nontender nondistended Laceration mid forehead dry no signs of infection Knee incision dressed dry status post evacuation of hematoma No peripheral edema Neurologically nonfocal. Moving all extremities appropriately No new findings on tertiary exam Trauma surgery will sign off at this time. Call with any further issues or concerns regarding trauma on this hospital admission Objective: Vital Signs Temp Pulse Resp BP Pulse Ox 35.9 C L 120 H 20 140/98 H 94 03/15/18 11:34 03/15/18 14:54 03/15/18 14:54 03/15/18 14:54 03/15/18 14:54 03/14/18 03/15/18 03/16/18 05:59 05:59 05:59 Intake Total 900 Output Total 1390 Balance -490 PT 22.8 SEC (12.0-15.0) H 03/15/18 03:35 INR 2.01 (0.83-1.16) H 03/15/18 03:35
--- NOTE | 2018-03-15 19:08 | HOSPPROG ---
Hospitalist Progress Note Assessment/Plan: DIAGNOSES: * acute knee injury with periarticular hematoma, status post evacuation of hematoma in OR; patient on chronic anticoagulation orally * fall at home with injury * laceration to scalp * gait instability with high ongoing fall risk * atrial fibrillation a with acute episode of rapid ventricular rate, paroxysmal AFib; on chronic oral anticoagulation currently held due to hemorrhage * Need to look for previous echocardiograms to determine what her systolic function is, may need repeat echo at this time * acute CHF, currently with remarkable edema of both legs that appears worse than usual * dementia She appears to have been in rate controlled AFib I arrived here but is now higher. It appears that she suddenly had higher heart rate coming out of the OR. Looking back it does not appear that she has had any of her diltiazem rate control medicine today so far. PLANS: * Follow on cardiac sonographer * Resume her diltiazem for rate control an add other medications as needed * IV Lasix * Follow closely for signs of heart failure * Follow vital signs and hemoglobin closely with any possible further hemorrhage * Subsequent serial examinations of her leg for any compromise of circulation, follow wound carefully * Fall risk precautions, PT and OT Greater than 40 min spent at bedside and care coordination by me today in addition to the time spent earlier by Dr. Maggie Navarrete on his admission activities Patient seen by me today on hospitalist rounds I reviewed in detail with Dr. Cameron Haley of Trauma surgery SUBJECTIVE: Patient feels reasonably well Some pain in her knee otherwise no discomfort No cardiac symptoms OBJECTIVE Vitals reviewed: Heart rate now rapid in the 120s to 130s, others messina stable vitals with no fever [employer], my review: Rapid AFib Exam: alert oriented skin warm dry color ok resps not labored lungs clear BSs heart regular abd soft nondistended nontender, bowel sounds present limbs diffuse edema of both legs, unclear if this is her baseline or not but it seems likely more than is expected iv site ok I reviewed her chest x-ray image from this morning which shows evidence of pulmonary vascular congestion suggesting congestive heart failure BNP is 1060 Objective: Vital Signs Temp Pulse Resp BP Pulse Ox 35.9 C L 120 H 20 140/98 H 94 03/15/18 11:34 03/15/18 14:54 03/15/18 14:54 03/15/18 14:54 03/15/18 14:54 03/14/18 03/15/1803/16/19 06:59 06:59 06:59 Intake Total 1380 Output Total 400 1010 Balance -400 370 PT 22.8 SEC (12.0-15.0) H 03/15/18 03:35 INR 2.01 (0.83-1.16) H 03/15/18 03:35 ICD10 Worksheet Patient Problems: Problems Problem Status Onset Fall as cause of accidental injury at home as place of occurrence Acute - ICD10 Problem Qualifiers (1) Fall as cause of accidental injury at home as place of occurrence
[2018-03-15] MEDS ORDERED: FUROSEMIDE 40 MG/4 ML VIAL IVP ONE (19:10)
[2018-03-15] MEDS: ACETAMINOPHEN 325 MG TAB PO PRN (20:14)
[2018-03-15] MEDS ORDERED: ALBUTEROL 60 PUFFS/8 GM MDI IH SCH (21:00)
[2018-03-15] MEDS ORDERED: QUEtiapine FUMARATE 50 MG TAB PO ONE (23:57)
[2018-03-16] MEDS: cycloSPORINE 0.05% 30 DROPERETTE/BOX EACHEYE SCH ×3 (00:08→21:26)
[2018-03-16] MEDS: DILTIAZEM 60 MG TAB PO SCH ×4 (00:12→18:05)
[2018-03-16] MEDS: ACETAMINOPHEN 325 MG TAB PO PRN (00:17)
[2018-03-16] MEDS: NON-FORMULARY NEW DRUG (Propylene Glycol/Peg 400 [Systane 0.3-0.4% Eye Drops] 1 DROP) EACHEYE SCH ×3 (00:28→21:28)
[2018-03-16] MEDS ORDERED: HALOPERIDOL LACT 5 MG/ML INJ IVP PRN (02:19)
[2018-03-16 04:57] LABS: PLATELET COUNT 191 10^3/uL (150-400)
[2018-03-16] MEDS: ALBUTEROL 60 PUFFS/8 GM MDI IH SCH ×2 (09:07→21:03)
--- NOTE | 2018-03-16 10:11 | ASMTCMCOM ---
CM Note CM Note Notes: Chart reviewed. 87 year old female admitted after being found down. She lives in a memory care facility, she has sustained some injuries to her face and knee. She has had a surgical washout of her knee. Referrals placed to SNF's. CM to follow. Plan: TBD Plan: To SNF when medically stable for discharge. Date Signed: 03/16/2018 10:10 AM Electronically Signed By:Desiree Dia RN
--- NOTE | 2018-03-16 10:41 | PDMN ---
Medical Necessity Medical necessity: Pt meets INPT criteria per MD as of 03/15/18 and [facility] Musculoskeletal Disease GRG (est. LOS >2 MN for eval/tx of acute knee injury with periarticular hematoma s/p evacuation of hematoma; fall at home with injury , gait instability with high ongoing fall risk, afib with acute episode RVR. acute CHF, gross hematuria, dementia).
--- NOTE | 2018-03-16 12:47 | HOSPPROG ---
Hospitalist Progress Note Assessment/Plan: DIAGNOSES: * acute knee injury with periarticular hematoma, status post evacuation of hematoma in OR; patient on chronic anticoagulation orally * fall at home with injury * laceration to scalp * gait instability with high ongoing fall risk * atrial fibrillation a with acute episode of rapid ventricular rate, paroxysmal AFib; on chronic oral anticoagulation currently held due to hemorrhage * acute CHF, currently with remarkable edema of both legs that appears worse than usual * dementia, with behavioral disturbances At this point the patient appears to likely be stable but it is hard to assess in detail. Our goals of care will need to be somewhat limited given her desire to not have interventions and her unwillingness to engage with this constructively. PLANS: * Follow on athletic monitor as she will allow * Continue diltiazem for rate control at this time, other measures as indicated over time * Continue diuresis as she will allow * Will trying get 1 more hemoglobin during her stay here if she will allow * Fall risk precautions, PT and OT as able * I will have further discussion with the patient's daughter today regarding goals of care, possible palliative measures, and will need to look carefully at her safety needs and whether they can be further met at her current place of residence * Patient seen by me today on hospitalist rounds I reviewed in detail with Dr. Lane of Orthopedics SUBJECTIVE: Patient has been very on willing to engage with nurses and medical staff through the night and today. At this time she is unwilling to answer any questions about how she is feeling or symptoms or otherwise. During the night she was fairly agitated, pulled out her knee drain and pulled off her cardiac monitoring wires. She has not allow the nurses to replace the cardiac wires and has not allow the blood draw this morning. She is not ordering a who did not willing to talk to us about ordering food. The daughter is now here at the bedside and even with the daughter trying to plaque at the patient is she is unwilling to engage with this. OBJECTIVE Vitals reviewed: No vitals obtained as patient is unwilling to allow Paper Supervisor, my review: Monitor not currently attached as patient is a not allowing it Exam: alert, agitated, unable to determine her level of orientation Good strength is demonstrated during her efforts to push nursing staff away as they tried to examine her or place cardiac leads on skin color ok At this point she will not allow any other examination Laboratory data: Unavailable as patient has not allowed blood draw Objective: Vital Signs Temp Pulse Resp BP Pulse Ox 36.7 C 136 H 18 134/87 H 92 03/16/18 06:37 03/16/18 01:53 03/16/18 06:37 03/16/18 06:37 03/16/18 06:37 Laboratory Results 03/16/18 03:40 03/16/18 03:40 03/15/18 03/16/18 03/17/18 06:59 06:59 06:59 Intake Total 150 Output Total 425 Balance -275 PT 22.8 SEC (12.0-15.0) H 03/15/18 03:35 INR 2.01 (0.83-1.16) H 03/15/18 03:35 - Time Spent With Patient Time Spent with Patient: greater than 35 minutes Time Spent with Patient: Greater than 35 minutes spent on this patients care, greater than 50% of time spent counseling, educating, and coordinating care regarding the above mentioned plan. ICD10 Worksheet Patient Problems: Problems Problem Status Onset Fall as cause of accidental injury at home as place of occurrence Acute - ICD10 Problem Qualifiers (1) Fall as cause of accidental injury at home as place of occurrence
[2018-03-16] MEDS: POTASSIUM CL 20 MEQ TAB PO SCH (13:00)
[2018-03-16] MEDS: ALLOPURINOL 300 MG TAB PO SCH (13:09)
[2018-03-16] MEDS: BUMETANIDE 2 MG TAB PO SCH (13:09)
[2018-03-16] MEDS: CHOLECALCIFEROL VIT D3 1,000 UNITS TAB PO SCH (13:10)
[2018-03-16] MEDS: CYANO/VITAMIN B12 1000 MCG TAB PO SCH (13:10)
[2018-03-16] MEDS: CALCIUM CARBONATE 500 MG TAB PO SCH (13:10)
--- NOTE | 2018-03-16 15:51 | GPROG ---
I saw this patient as well as her daughter today at the bedside. She had a difficult night with kings aguilar to her mental status. She has been very uncooperative with any sort of examination or therapy. S he has also self-discontinued the drain. On physical exam, we did peek a little bit at the incision and the skin itself appears to be non-threatened at this point. The incision itself is clean, dry, i ntact, and there is no active bleeding. We left the compression wraps in place. We tried to put the patient's foot on 2 pillows, but she refused. We did get her on 1 pillow, which I think is going to be adequate. IMPRESSION: Postoperative day 2, status post right prepatellar bursa irrigation and debridement for hematoma. ASSESSMENT AND PLAN: I think the patient can be discharged whenever deemed appropriate by the medica l service. If the patient is still in the hospital tomorrow, we will remove the dressing and apply a n additional compression bandage at that time. If the patient is able to get some physical therapy. I think that would be certainly reasonable. Otherwise, limited goals are obviously going to be acce ptable for this patient. I would like the patient to follow up in my office in 2 weeks' time from e operation for suture removal. /[id number]/MODL
[2018-03-17] MEDS: DILTIAZEM 60 MG TAB PO SCH ×4 (00:18→19:36)
[2018-03-17] MEDS: POTASSIUM CL 20 MEQ TAB PO SCH (09:18)
[2018-03-17] MEDS: CALCIUM CARBONATE 500 MG TAB PO SCH (09:18)
[2018-03-17] MEDS: ALLOPURINOL 300 MG TAB PO SCH (09:18)
[2018-03-17] MEDS: CHOLECALCIFEROL VIT D3 1,000 UNITS TAB PO SCH (09:18)
[2018-03-17] MEDS: BUMETANIDE 2 MG TAB PO SCH (09:18)
[2018-03-17] MEDS: CYANO/VITAMIN B12 1000 MCG TAB PO SCH (09:19)
[2018-03-17] MEDS: cycloSPORINE 0.05% 30 DROPERETTE/BOX EACHEYE SCH ×2 (09:28→19:37)
[2018-03-17] MEDS: NON-FORMULARY NEW DRUG (Propylene Glycol/Peg 400 [Systane 0.3-0.4% Eye Drops] 1 DROP) EACHEYE SCH ×2 (09:30→22:12)
[2018-03-17] MEDS: ALBUTEROL 60 PUFFS/8 GM MDI IH SCH ×2 (09:46→21:36)
--- NOTE | 2018-03-17 14:58 | ASMTCMCOM ---
CM Note CM Note Notes: Spoke [facility] patient's daughter who prefers patient go to [facility] as it [place]. Likely discharge tomorrow. Plan: DC to [facility] Date Signed: 03/17/2018 02:57 PM Electronically Signed By:Desiree Dia RN
--- NOTE | 2018-03-17 15:09 | ASMTCMCOM ---
CM Note CM Note Notes: Met with daughter Thais who states she prefers [facility] as it is very close to her work. Likely to discharge today. Plan: Dc to SNF Date Signed: 03/17/2018 03:08 PM Electronically Signed By:Desiree Dia RN
[2018-03-17] MEDS: ACETAMINOPHEN 325 MG TAB PO PRN (16:11)
--- NOTE | 2018-03-17 19:30 | HOSPPROG ---
Hospitalist Progress Note Assessment/Plan: DIAGNOSES: * acute knee injury with periarticular hematoma bu tno fx, status post evacuation of hematoma in OR; patient on chronic anticoagulation orally 9held at moment due to bleed) * fall at home with injury * laceration to scalp * gait instability with high ongoing fall risk * atrial fibrillation a with acute episode of rapid ventricular rate, paroxysmal AFib; on chronic oral anticoagulation currently held due to hemorrhage * acute on chronic CHF (unknown syst vs diast, no echo in our system) * needs echo * legs look better today after some diuresis * dementia, with behavioral disturbances * better today after better sleep last night PLANS: * Follow on cardiac sonographer as she will allow * Have increased her diltiazem from 180/day to 60 qid; if remains w stable rate would DC on 240 long acting daily * Continue diuresis as she will allow * echo tomorrow if she will allow * Fall risk precautions, PT and OT as able * wound care, will await reexam by ortho of her knee * may need further discussion with the patient's daughter today regarding goals of care, possible palliative measures, and will need to look carefully at her safety needs and whether they can be further met at her current place of residence; SNF rehab will be necessary and sounds like daughter would like this Patient seen by me today on hospitalist rounds SUBJECTIVE: Overall notably better today in terms of her mentation, her engagement with nursing and medical care, eating, etc. Appears to have had good diuresis but unable to get accurate I&O Per nurse slept much better last night Pt states she feels well overall, some pain still at R knee OBJECTIVE Vitals reviewed: still some tachycardia but better, otherwise stable Card Monitor: still rapid a fib but rate control notably better Exam: alert, much less agitated, very pleasant and conversant; allowing examination today as well as nursing care is allowing cardiac sonographer today no focal neuro changes obvious memory issues are at baseline per daughter resps not labored lungs clear heart irreg, mildly rapid abd nl legs w some edema R knee in dressing by orthopedist Laboratory data: repeat labs finally obtained last night overall stable, mild decrease Hg Objective: Vital Signs Temp Pulse Resp BP Pulse Ox 36.5 C 92 20 124/58 H 91 L 03/17/18 16:18 03/17/18 16:18 03/17/18 16:18 03/17/18 16:18 03/17/18 16:18 Laboratory Results 03/16/18 03:40 03/16/18 03:40 03/16/18 03/17/18 03/18/18 06:59 06:59 06:59 Intake Total 150 300 360 Output Total 425 Balance -275 300 360 PT 22.8 SEC (12.0-15.0) H 03/15/18 03:35 INR 2.01 (0.83-1.16) H 03/15/18 03:35 ICD10 Worksheet Patient Problems: Problems Problem Status Onset Fall as cause of accidental injury at home as place of occurrence Acute - ICD10 Problem Qualifiers (1) Fall as cause of accidental injury at home as place of occurrence
[2018-03-18] MEDS: DILTIAZEM 60 MG TAB PO SCH ×4 (02:25→14:16)
--- NOTE | 2018-03-18 04:49 | GPROG ---
I saw and evaluated Desiree at the bedside today. She is doing quite well. She is doing night and day different than she had the days before. She is pleasant and cooperative with the examination tosilvia obando. The dressing was removed. The incision itself was clean, dry, intact; however, she does have a large blistered area over the incision, which was present before the operation and is from the skin p ressure. She is able to range the knee almost 70 or 80 degrees, limited at this point by pain. ASSESSMENT AND PLAN: Moving forward, I will sign off this patient as there are no acute orthopedic i ssues. Please feel free to call me if any additional issues arise. The patient's family has my cell phone and is more than welcome to call it. I would like to see the patient in 2 weeks' time in the office to remove the stitches and check on the incision. She will also need some wound care in the m eantime. I would recommend that a mild amount of compression be used over the knee, either with a TE D hose or Manuel wrap bandage, along with some Xeroform used over the macerated skin area after the blis ter has popped. As always, thank you kindly for allowing me to participate in this patient's care. Please call if I can answer any further questions, . /[id number]/MODL
[2018-03-18] MEDS: ALBUTEROL 60 PUFFS/8 GM MDI IH SCH (09:22)
[2018-03-18] MEDS: BUMETANIDE 2 MG TAB PO SCH (10:56)
[2018-03-18] MEDS: ALLOPURINOL 300 MG TAB PO SCH (10:56)
[2018-03-18] MEDS: POTASSIUM CL 20 MEQ TAB PO SCH (10:57)
[2018-03-18] MEDS: cycloSPORINE 0.05% 30 DROPERETTE/BOX EACHEYE SCH (10:57)
[2018-03-18] MEDS: CHOLECALCIFEROL VIT D3 1,000 UNITS TAB PO SCH (10:57)
[2018-03-18] MEDS: CALCIUM CARBONATE 500 MG TAB PO SCH (10:57)
[2018-03-18] MEDS: CYANO/VITAMIN B12 1000 MCG TAB PO SCH (10:57)
[2018-03-18 11:24] VITALS: BP 131/65
[2018-03-18] MEDS: NON-FORMULARY NEW DRUG (Propylene Glycol/Peg 400 [Systane 0.3-0.4% Eye Drops] 1 DROP) EACHEYE SCH (11:39)
--- NOTE | 2018-03-18 13:33 | GPROG ---
I saw and evaluated the patient at the bedside this morning. She is somewhat confused, but again, ap pears to be much better than she was 2 days previously. The dressing was in place, and a compression style dressing, and I left this intact. She is grossly neurologically intact, and there is no strik e-through on the dressing. ASSESSMENT/PLAN: From my perspective, the patient can be discharged at any point. I would like her to see wound care to assess the large amount of blistering that was present before the operation, but appears to be getting better on a daily basis. Again, I would like to see the patient in 2 weeks' t isabela to re-evaluate her in my office and remove the stitches. If there are any problems in the meanti me, I have given the patient's family my cell phone, and please feel free to call me at [phone]. /[id number]/MODL
--- NOTE | 2018-03-18 15:41 | PDDCSUM ---
Discharge Summary Discharge Summary: Patient is an 87-year-old female with past medical history of dementia atrial fibrillation congestive heart failure and hypothyroid who presented after being found down at her living facility. The patient lives at [facility] and was found down with several injuries. She had a left frontal scalp laceration and a large right knee effusion. She was on Xarelto for anticoagulation in the setting of atrial fibrillation. She did not remember what happened and is at baseline oriented to person only. Surgery was consulted regarding her knee effusion as there was concern for a large hematoma. She was taken to the OR for a washout and release of any sort of clot or bleeding. She tolerated this procedure well. She received sutures for the laceration on her scalp. She recovered well and [facility] with [facility]. Her Xarelto was held at the recommendation of surgery to be restarted in 1-1 and half weeks Discharge medications Xarelto was held Patient's home dose of diltiazem was held and she was covered with 60 mg four times daily which was continued on discharge Other medications were unchanged . Discharge diagnosis Right knee hematoma. Atrial fibrillation Dementia Asthma Congestive heart failure Imaging studies CT of the head, cervical spine, thoracic spine, lumbar spine, chest Impression Small hiatal hernia Bilateral renal cortical cysts 8 x 10 mm focus of nodular thickening in the left adrenal gland Small periumbilical hernia containing a loop of small bowel with no incarceration or inflammation There is no acute intra-abdominal visceral injury Senescent features of the spine with a thoracic kyphosis, and old mild compression deformity from T6-T8 with large traction osteophytes and no acute thoracic injury Remote postoperative features from L2-L5 as detailed above with no acute abnormality
--- NOTE | 2018-03-18 15:45 | PDIAF ---
- Diagnosis Code Status: Do Not Resuscitate - Medication Management Discharge Medications: electronically signed and located in the Home Medication List. - Orders Services needed: Registered Nurse, Certified Bio Medical Technician, Physical Therapy, Occupational Therapy Diet Recommendation: no restrictions on diet Diet Texture: Regular Texture Diet Additional Instructions: restart anticoagulation in 1-1.5 weeks with xarelto . Follow up with Dr. Lane the ortho surgeon. - Labs/Radiology BMP Date: 03/20/18 - Follow Up Care Current Providers and Referrals: Patient,NotPresent [Unknown] - As per Instructions
--- NOTE | 2018-03-18 15:57 | ASDISCHSUM ---
Discharge Information Plan Status:SNF Medically Cleared to Leave:03/17/2018 Discharge Date:03/17/2018 CM D/C Disposition:Assisted Facility ADT D/C Disposition:Assisted Facility Projected Discharge Date:03/18/2018 11:00 AM Transportation at D/C:Wheelchair Van Discharge Delay Reason: Follow-Up Date:03/18/2018 11:00 AM Discharge Slot: Final Diagnosis: Placement Information Referral Type:*[facility]/SNF Referral ID:[id number] Provider Name:[facility] Address 1:[address] Address 2: City:[place] Selection Factors: State:[place] Patient Contact Information Contact Name:ANGIE Relationship:Daughter Address:[address] [place] Work Phone: City:[place] Alternate Phone: [facility]/Zip Code:[place] [address] Email: Financial Information Financial Class:Medicare Primary Plan Desc:MEDICARE OUTPATIENT Primary Plan Number:[id number] Secondary Plan Desc:[employer]/MDR SUPPLEMENT Secondary Plan Number:[id number] Assessment Information LACE LACE Length of stay for Answers: 2 days current admission Acuity / Level of Answers: Yes Care: Did the patient have an inpatient admission? Comorbidities - select Answers: Congestive heart failure all that apply Dementia Score: 10 Date Signed: 03/18/2018 03:53 PM Electronically Signed By:Joseline Grijalva RN [facility] CM Progress Note CM Note CM Note Notes: Chart reviewed. 87 year old female admitted after being found down. She lives in a memory care facility, she has sustained some injuries to her face and knee. She has had a surgical washout of her knee. Referrals placed to SNF's. CM to follow. Plan: TBD Plan: To SNF when medically stable for discharge. Date Signed: 03/16/2018 10:10 AM Electronically Signed By:Desiree Dia RN [facility] CM Progress Note CM Note CM Note Notes: Spoke [facility] patient's daughter who prefers patient go to [facility] as it is very clode to her home. Likely discharge tomorrow. Plan: DC to [facility] Date Signed: 03/17/2018 02:57 PM Electronically Signed By:Desiree Dia RN [facility] CM Progress Note CM Note CM Note Notes: Met with daughter Thais who states she prefers [facility] as it is very close to her work. Likely to discharge today. Plan: Dc to SNF Date Signed: 03/17/2018 03:08 PM Electronically Signed By:Desiree Dia RN Case Management Discharge Plan Note Case Management Discharge Discharge Order Complete? Answers: Yes Patient to Obtain Answers: Other Notes: [facility] Transportation Arranged Answers: Other Notes: arranged by [facility] Faxed Final Orders Answers: Yes Notes: to [facility] Agency/Facility Transfer Answers: Yes Notes: to [facility] Report Printed & Faxed to Receiving Agency Family Notified Answers: Yes Notes: by MD Discharge Comments Notes: 03/18/2018 Case Management Note Pt to discharge to [facility]. 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 Faxed final orders. RN to call report. Date Signed: 03/18/2018 03:56 PM Electronically Signed By:Joseline Grijalva RN Intervention Information Intervention Type:IM-Pt. Not Available Date of Service:03/18/2018 03:54 PM Patient Type:Inpatient Staff Member:Jeannie Martinez Hours: Discipline: Severity: Comment:Patient has dementia. I left a voicema il for her daughter, Thais at [phone], to inform of the Medicare Important Message.
--- NOTE | 2018-03-18 15:57 | ASMTDCNOTE ---
Case Management Discharge Discharge Order Complete? Answers: Yes Patient to Obtain Answers: Other Notes: [facility] Medications Transportation Arranged Answers: Other Notes: arranged by [facility] Faxed Final Orders Answers: Yes Notes: to [facility] Agency/Facility Transfer Answers: Yes Notes: to [facility] Report Printed & Faxed to Receiving Agency Family Notified Answers: Yes Notes: by MD Discharge Comments Notes: 03/18/2018 Case Management Note Pt to discharge to [facility]. 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 Faxed final orders. RN to call report. Date Signed: 03/18/2018 03:56 PM Electronically Signed By:Joseline Grijalva RN
== END 2018-03-18 16:29 | DRG 988 ==
LOC: EDUNIT# → F2W 09:15 → OBSVTOIN 21:11
PROVIDERS: ADMIT Student in an Organized Health Care Education/Training Program; ATTEND Student in an Organized Health Care Education/Training Program
PROC: 30283B1 Transfusion of Nonautologous 4-Factor Prothrombin Complex Concentrate into Vein, Percutaneous Approach (ICD-10-PCS; 2018-03-15)
PROC: 0HQ0XZZ Repair Scalp Skin, External Approach (ICD-10-PCS; 2018-03-15)
PROC: 0SCC0ZZ Extirpation of Matter from Right Knee Joint, Open Approach (ICD-10-PCS; principal; 2018-03-15 07:00)
DX: S80.01XA Contusion of right knee, initial encounter (principal); G30.9 Alzheimer's disease, unspecified; F02.81 Dementia in other diseases classified elsewhere, unspecified severity, with behavioral disturbance; S01.01XA Laceration without foreign body of scalp, initial encounter; W19.XXXA Unspecified fall, initial encounter; Y92.129 Unspecified place in nursing home as the place of occurrence of the external cause; I48.91 Unspecified atrial fibrillation; J45.909 Unspecified asthma, uncomplicated; R31.0 Gross hematuria; I11.0 Hypertensive heart disease with heart failure; I50.9 Heart failure, unspecified; E03.9 Hypothyroidism, unspecified; K44.9 Diaphragmatic hernia without obstruction or gangrene; N28.1 Cyst of kidney, acquired; Z66 Do not resuscitate; I25.10 Atherosclerotic heart disease of native coronary artery without angina pectoris; J44.9 Chronic obstructive pulmonary disease, unspecified; Z79.01 Long term (current) use of anticoagulants; Z85.3 Personal history of malignant neoplasm of breast; Z90.13 Acquired absence of bilateral breasts and nipples; Z96.651 Presence of right artificial knee joint
CPT/HCPCS: 92523-GN; 96374; 97116-GP; 97162-GP; 97166-GO; 97530-GP; C9132; J0690; J1100; J1630; J1940; J2001; J2270; J2310; J2405; J2704; J3010; J3370; Q9967